=== PATIENT | female | born 2000 | race Caucasian/White ===

== ENCOUNTER 2019-11-27 15:49 | Emergency (ER) | payer OTHER ==
[~2019-11-27] VITALS: Ht 152.4 cm; Wt 41.3 kg
[2019-11-27 16:06] VITALS: BP 146/81
--- NOTE | 2019-11-27 16:17 | NUR ---
PATIENT PRESENTS TO ED WITH C/O DIZZINESS X 5 DAYS, NAUSEA + VOMITING X1 EPISODE. DENIES PAIN, VSS; PATIENT POSITIONED FOR COMFORT; HOB ELEVATED; BEDRAILS UP X2; BED DOWN. ER MD MADE AWARE OF PT STATUS.
--- NOTE | 2019-11-27 16:50 | NUR ---
Patient being evaluated by physician at bedside.
[2019-11-27] MEDS ORDERED: MECLIZINE 25 MG TAB PO ONE (16:55)
[2019-11-27 18:03] LABS: BASOPHILS % (AUTO) 0.9 % (0.0-2.0); EOSINOPHILS % (AUTO) 0.2 % (0.0-4.0); HEMATOCRIT 37.5 % (36-48); HEMOGLOBIN 12.2 g/dL (12.0-16.0); LYMPHOCYTES # (AUTO) 1.3 K/uL (2.5-16.5); LYMPHOCYTES % (AUTO) 23.3 % (20.5-51.1); MEAN CORPUSCULAR HEMOGLOBIN 31 pg (27-31); MEAN CORPUSCULAR HGB CONC 33 g/dL (33-37); MEAN CORPUSCULAR VOLUME 93.3 fL (80-94); MONOCYTES # (AUTO) 0.3 K/uL (0.8-1.0); MONOCYTES % (AUTO) 5.4 % (1.7-9.3); NEUTROPHILS # (AUTO) 3.9 K/uL (1.8-7.7); NEUTROPHILS % (AUTO) 70.2 % (42.2-75.2); PLATELET COUNT (AUTO) 260 K/uL (140-450); RED BLOOD CELL COUNT(AUTO) 4.01 MIL/uL (4.20-5.40); RED CELL DISTRIBUTION WIDTH 13.4 % (11.6-13.7); WHITE BLOOD COUNT (AUTO) 5.6 K/uL (4.8-10.8)
[2019-11-27 18:13] LABS: ANION GAP 11.1 (8-16); CARBON DIOXIDE 27.4 mmol/L (21-32); CREATININE 0.6 mg/dL (0.6-1.3); POTASSIUM 3.5 mmol/L (3.5-5.1)
--- NOTE | 2019-11-27 18:18 | NUR ---
PATIENT IS RESTING IN BED, STATED FEELING BETTER NOW, NO S/S OF DISTRESS, VSS, DENIES PAIN.
[2019-11-27 18:19] LABS: ALBUMIN 4.2 g/dL (3.4-5.0); TOTAL BILIRUBIN 0.6 mg/dL (0.0-1.0)
[2019-11-27 18:58] VITALS: BP 132/78
--- NOTE | 2019-11-27 18:58 | NUR ---
Patient discharged TO HOME. Written and verbal after care instructions given and explained. Rx of MECLIZINE given. Patient educated on indication of medication including possible reaction and side effects. All questions addressed prior to discharge. ID band removed. Patient advised to follow up with PMD.
== END 2019-11-27 18:58 | disposition home or self-care (01) ==
LOC: MED 15:49
DX: H81.399 Other peripheral vertigo, unspecified ear (principal)
CPT/HCPCS: 36415; 80053; 81002; 81025; 85025; 99283; J8597